=== PATIENT | male | born 1995 | race American Indian/Alaskan Native ===

== ENCOUNTER 2018-10-29 13:24 | Emergency (ER) | payer OTHER ==
[2018-10-29 13:43] VITALS: BP 105/63
[2018-10-29] MEDS ORDERED: IBUPROFEN PO ONE (13:44)
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
--- NOTE | 2018-10-29 14:12 | XRay Report ---
CERVICAL SPINE, 3 views: History: Neck pain. Findings: The vertebral bodies, disk spaces, posterior elements and prevertebral soft tissues are unremarkable. The dens is intact. No acute fracture or malalignment is identified. Impression: 1. No evidence for acute injury to the cervical spine.
[2018-10-29] MEDS ORDERED: NORCO 5/325 PO ONE (14:46)
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
== END 2018-10-29 14:58 | disposition home or self-care (01) ==
LOC: ED 13:24
DX: S16.1XXA Strain of muscle, fascia and tendon at neck level, initial encounter (principal); F17.200 Nicotine dependence, unspecified, uncomplicated; V89.2XXA Person injured in unspecified motor-vehicle accident, traffic, initial encounter; Y93.89 Activity, other specified; Y92.488 Other paved roadways as the place of occurrence of the external cause; Y99.8 Other external cause status
CPT/HCPCS: 72040; 99283